=== PATIENT | male | born 1960 | race Caucasian/White ===

== ENCOUNTER 2019-10-02 08:58 | Emergency (ER) | payer OTHER ==
[2019-10-02 09:03] VITALS: TEMP 98.5
[2019-10-02] MEDS ORDERED: ASPIRIN 81 MG PO STA (09:20)
[2019-10-02] MEDS ORDERED: KETOROLAC 30 MG/ML 1 ML VIAL IVP STA (09:20)
[2019-10-02] MEDS ORDERED: SODIUM CHLORIDE 0.9% 1,000 ML IV STA (09:20)
[2019-10-02 09:33] LABS: Basophils % (A) 1 %; Eosinophils # (A) 0.1 k/uL (0-0.7); Eosinophils % (A) 2 %; HCT 47.4 % (39.0-53.0); HGB 15.6 gm/dL (13.0-17.5); Lymphocytes # (A) 1.6 k/uL (1.0-4.8); Lymphocytes % (A) 22 %; Monocytes # (A) 0.5 k/uL (0-1.0); Monocytes % (A) 7 %; Neutrophils % (A) 67 %; Platelet Count 306 k/uL (150-450); RBC 5.21 m/uL (4.30-5.90); RDW 13.3 % (11.5-15.5); WBC 7.5 k/uL (3.8-10.6)
--- NOTE | 2019-10-02 09:33 | ED ---
Chest Pain HPI - General Chief Complaint: Chest Pain Stated Complaint: Vomiting Time Seen by Provider: 10/02/19 09:05 Source: patient, RN notes reviewed Mode of arrival: wheelchair Limitations: no limitations - History of Present Illness Initial Comments: This is a 59-year-old male who was a former smoker who quit 6 years ago who states he had the onset this morning of chest pain sharp midsternal 5/10 severity with shortness of breath some nausea. He states 0) now he states it does get worse with movement deep breathing and positional changes. He denies any recent cough fevers chills nausea vomiting sweats. No known history of heart disease or lung disease. 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 Positions recently. No other trauma no other modifying factors at this time MD Complaint: chest pain - Related Data Home Medications Medication Instructions Recorded Confirmed Aspirin EC [Ecotrin Low Dose] 81 mg PO DAILY 10/02/19 10/02/19 Multivitamins, Thera [Multivitamin 1 tab PO DAILY 10/02/19 10/02/19 (formulary)] Previous Rx's Medication Instructions Recorded Ibuprofen 800 mg PO Q6HR PRN #20 tablet 10/02/19 Allergies Allergy/AdvReac Type Severity Reaction Status Date / Time bee pollen Allergy Unknown Verified 10/02/19 11:05 bee venom protein (honey bee) Allergy Anaphylaxis Verified 10/02/19 11:05 Review of Systems ROS Statement: Those systems with pertinent positive or pertinent negative responses have been documented in the HPI. ROS Other: All systems not noted in ROS Statement are negative. EKG Findings - EKG Results: EKG: interpreted by ANDREA, sinus rhythm (EKG shows sinus rhythm of 54 SC interval 146 QRS duration 102 QT since QTC 446/422 st-t wave changes) Past Medical History Past Medical History: No Reported History History of Any Multi-Drug Resistant Organisms: None Reported Past Surgical History: No Surgical Hx Reported Past Psychological History: No Psychological Hx Reported Smoking Status: Former smoker Past Alcohol Use History: None Reported Past Drug Use History: None Reported General Exam - General Exam Comments Initial Comments: This is a well-developed well-nourished awake alert oriented 3 male Limitations: no limitations General appearance: alert, in no apparent distress Head exam: Present: atraumatic, normocephalic, normal inspection Eye exam: Present: normal appearance, PERRL, EOMI. Absent: scleral icterus, conjunctival injection, periorbital swelling ENT exam: Present: normal exam, mucous membranes moist Neck exam: Present: normal inspection, full ROM, other. Absent: tenderness, meningismus, lymphadenopathy Respiratory exam: Present: normal lung sounds bilaterally, chest wall tenderness (Reproducible tenderness palpation on the left costal sternal costochondral margin with no step-off or crepitation.). Absent: respiratory distress, whe ezes, rales, rhonchi, stridor Cardiovascular Exam: Present: regular rate, normal rhythm, normal heart sounds. Absent: systolic murmur, diastolic murmur, rubs, gallop, clicks GI/Abdominal exam: Present: soft, normal bowel sounds. Absent: distended, tenderness, guarding, rebound, rigid, bruit, pulsatile mass Extremities exam: Present: normal inspection, full ROM, normal capillary refill. Absent: tenderness, pedal edema, joint swelling, calf tenderness Back exam: Present: normal inspection Neurological exam: Present: alert, oriented X3, CN II-XII intact Psychiatric exam: Present: normal affect, normal mood Skin exam: Present: warm, dry, intact, normal color. 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 CT was performed due to the elevated d-dimer negative for evidence of PE. Chronic changes Chest Pain MDM - MDM I did review the imaging and report no acute findings evidence of increased vascular markings over the patient's BNP is reasonable no clinical evidence CHF. Is a former smoker. The current presentation is consistent with chest wall pain and costochondritis he is tender over the costal sternal costochondral margins. We did a long discussion with him and his was present she is a nurse. Patient be discharged on NSAIDs. I did recommend that he follow-up with his doctor he will follow-up with his 's doctor and I did recommend an outpatient stress test. Disposition Clinical Impression: Costochondritis, Chest wall syndrome Disposition: HOME SELF-CARE Condition: Good Instructions (If sedation given, give patient instructions): Costochondritis (ED) Additional Instructions: [facility]ication prescriptions [facility] Prescriptions: Ibuprofen 800 mg PO Q6HR PRN #20 tablet PRN Reason: Pain Is patient prescribed a controlled substance at d/c from ED?: No Referrals: None,Stated [Primary Care Provider] - 1-2 days
--- NOTE | 2019-10-02 09:35 | XR ---
EXAMINATION TYPE: XR chest 2V DATE OF EXAM: 10/02/2019 COMPARISON: NONE HISTORY: Chest pain and nausea and shortness of breath. TECHNIQUE: Frontal and lateral views of the chest are obtained. FINDINGS: There is background chronic emphysematous change with small amount of fluid along the major fissure on lateral view. Perhaps mild interstitial edema with some Gabriella B lines in the left lung p eriphery. No suspicious focal airspace opacity or pneumothorax bilaterally. The cardiac silhouette s ize is within normal limits. The osseous structures are intact. IMPRESSION: Chronic emphysematous change with mild interstitial edema suspected. No suspicious focal infiltrate.
[2019-10-02 09:46] LABS: ALT 24 U/L (4-49); AST 30 U/L (17-59); African American GFR (CKD) >90 (>60 ml/min/1.73 sqM); Albumin 4.4 g/dL (3.5-5.0); Alkaline Phosphatase 95 U/L (38-126); Anion Gap 8 mmol/L; Blood Urea Nitrogen 13 mg/dL (9-20); Calcium 8.8 mg/dL (8.4-10.2); Carbon Dioxide 24 mmol/L (22-30); Chloride 105 mmol/L (98-107); Creatine Kinase 196 U/L (55-170); Glucose 91 mg/dL (74-99); Magnesium 2.2 mg/dL (1.6-2.3); Non-African American GFR(CKD) 88 (>60 ml/min/1.73 sqM); Potassium 4.8 mmol/L (3.5-5.1); Sodium 137 mmol/L (137-145); Total Bilirubin 0.8 mg/dL (0.2-1.3); Total Protein 7.8 g/dL (6.3-8.2)
[2019-10-02 09:49] LABS: Partial Thromboplastin Time 24.1 sec (22.0-30.0); Prothrombin Time 10.3 sec (9.0-12.0)
[2019-10-02 10:02] LABS: D-Dimer 0.85 mg/L FEU (<0.60)
--- NOTE | 2019-10-02 11:04 | CT ---
EXAMINATION TYPE: CT angio chest DATE OF EXAM: 10/02/2019 COMPARISON: Same day chest x-ray. HISTORY: shortness of breath, fatigue, elevated d-dimer CT DLP: 555.9 mGycm. Automated Exposure Control for Dose Reduction was Utilized. CONTRAST: CTA scan of the thorax is performed with IV Contrast, patient injected with 100 mL of Isovue 370, pul monary embolism protocol. MIP Images are created on CT scanner and reviewed. FINDINGS: LUNGS: Background mild underlying emphysematous change with mild alveolar and interstitial groundglas s opacity. Dependent atelectasis bilateral lobes. Corresponding to chest x-ray abnormality along fiss ure there is focal consolidation and/or atelectasis in the posterior inferior aspect of the suspected lingula. Left minor fissure not well visualized. No pleural effusion or pneumothorax bilaterally. No suspicious pulmonary masses. MEDIASTINUM: There is satisfactory enhancement of the pulmonary artery and its branches, there is no CT evidence for pulmonary embolism. There are no greater than 1 cm hilar or mediastinal lymph nodes. No pericardial effusion is seen. Heart size is mildly enlarged. There is left-sided arch with aber rant right subclavian artery running posterior to the esophagus, normal variant. OTHER: Mild to moderate mixed plaque in the visualized portion of the abdominal aorta extending into branch vessels. Sagittal image 96 shows mass effect from diaphragm on the celiac artery origin causin g narrowing greater than 50%. Clinical correlation advised. IMPRESSION: 1. No CT evidence for acute pulmonary embolism. 2. As suspected on x-ray correlate for CHF exacerbation or fluid overload status as there is mild car diomegaly with mild alveolar and interstitial edema felt present. 3. Incorrectly suspected on x-ray is fluid in left lung fissure there is actually more focal consolid ation/atelectasis in the posterior aspect lingula abutting the fissure accounting for x-ray abnormali ty. Correlate clinically. 4. 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 Strict clinical correlation advi sed.
[2019-10-02 12:34] VITALS: BP 150/84; PULSE 56; RESP 18
== END 2019-10-02 12:33 | disposition home or self-care (01) ==
LOC: EC 08:58
DX: M94.0 Chondrocostal junction syndrome [Tietze] (principal); R11.2 Nausea with vomiting, unspecified; R06.02 Shortness of breath; Z87.891 Personal history of nicotine dependence; Z79.82 Long term (current) use of aspirin; Z91.048 Other nonmedicinal substance allergy status
CPT/HCPCS: 99284; 96374; 96361 ×3; 36415; 93005; 85379; 83880; 80053; 82550; 83690; 83735; 84484; 85025; 85610; 85730; 71046; 71275; J1885; Q9967

== ENCOUNTER 2020-10-30 19:14 | Emergency (ER) | payer OTHER ==
[2020-10-30] MEDS ORDERED: KETOROLAC 15 MG/ML 1 ML VIAL IM STA (20:57)
[2020-10-30] MEDS ORDERED: ACETAMINOPHEN TAB 325 MG TAB PO STA (20:57)
--- NOTE | 2020-10-30 21:17 | XR ---
EXAMINATION TYPE: XR chest 2V DATE OF EXAM: 10/30/2020 COMPARISON: 10/02/2019 HISTORY: Fever TECHNIQUE: FINDINGS: There is some patchy infiltrate in both lungs. There is interstitial and airspace component of the infiltrates. Heart size is normal. There is no heart failure. There are no hilar masses. Ther e is no pleural effusion. Bony thorax is intact. IMPRESSION: There is patchy bilateral pneumonia which is new compared to old exam.
--- NOTE | 2020-10-30 21:27 | ED ---
Headache HPI - General Chief Complaint: Headache Stated Complaint: Fever, Headache Time Seen by Provider: 10/30/20 20:41 Mode of arrival: ambulatory Limitations: no limitations - History of Present Illness Initial Comments: 60-year-old male presenting to the emergency department today for chief complaint of body aches chills fevers and headaches. Patient states that since Monday of last week he has had body aches chills fevers and on and off headaches he denies neck stiffness abdominal pain, he states he feels like he cannot expand his lungs fully--no chest pressure jaw pain and arm pain or significant shortness of breath. Patient denies any sharp pains with deep inspiration leg swelling hemoptysis. Patient denies history of DVT or pulmonary embolism. Patient denies any vomiting, or nausea. He admits to the occasional diarrhea. Patient states he's been able to keep up with his fluids. Patient denies additional complaints. upon arrival he appears well nontoxic in no acute distress. febrile. Not hypotensive nor tachycardic. 95% without evidence of distress. - Related Data Home Medications Medication Instructions Recorded Confirmed Aspirin EC [Ecotrin Low Dose] 81 mg PO DAILY 10/02/19 10/02/19 Multivitamins, Thera [Multivitamin 1 tab PO DAILY 10/02/19 10/02/19 (formulary)] Previous Rx's Medication Instructions Recorded Ibuprofen 800 mg PO Q6HR PRN #20 tablet 10/02/19 Allergies Allergy/AdvReac Type Severity Reaction Status Date / Time bee pollen Allergy Unknown Verified 10/30/20 20:01 bee venom protein (honey bee) Allergy Anaphylaxis Verified 10/30/20 20:01 Review of Systems ROS Statement: Those systems with pertinent positive or pertinent negative responses have been documented in the HPI. ROS Other: All systems not noted in ROS Statement are negative. Past Medical History Past Medical History: No Reported History History of Any Multi-Drug Resistant Organisms: None Reported Past Surgical History: No Surgical Hx Reported Past Psychological History: No Psychological Hx Reported Smoking Status: Never smoker Past Alcohol Use History: None Reported Past Drug Use History: None Reported General Exam - General Exam Comments Initial Comments: General: The patient is awake and alert, in no distress Eye: +3 mm pupils are equal, round and reactive to light, extra-ocular movem ents are intact. No nystagmus. There is normal conjunctiva bilaterally. No signs of icterus. Ears, nose, mouth and throat: There are moist mucous membranes and no oral l esions. Neck: The neck is supple, there is no tenderness or JVD. Cardiovascular: There is a regular rate and rhythm. No murmur, rub or gallop is appreciated. Respiratory: Lungs are clear to auscultation, respirations are non-labored, breath sounds are equal. No wheezes, stridor, rales, or rhonchi. Gastrointestinal: Soft, non-distended, non-tender abdomen without masses or organomegaly noted. There is no rebound or guarding present. Musculoskeletal: Normal ROM, no tenderness. Strength 5/5. Sensation intact. radial and DP pulses equal bilaterally 2+. Neurological: A&O x 3. CN II-XII intact grossly, There are no obvious motor or sensory deficits. Coordination appears grossly intact. Speech is normal. Skin: Skin is warm and dry and no rashes or lesions are noted. Psychiatric: Cooperative, appropriate mood & affect, normal judgment. Limitations: no limitations Course Vital Signs 10/30/20 10/30/20 19:58 20:47 Temperature 98.8 F 100.3 F H Pulse Rate 79 Respiratory 19 Rate Blood Pressure 122/87 O2 Sat by Pulse 95 Oximetry Medical Decision Making - Medical Decision Making 60yo male presenting for cc of fevers, body aches headache. No nuchal rigidity. Patient denies shortness of breath. Chest x-ray revealed a bilateral atypical appearing pneumonia. This is consistent patient's positive Covid test. Patient is not hypoxic nor in any respiratory distress. At this time feel he is stable for discharge with outpatient pcp f/u, and home oxygen monitoring. - Lab Data Lab Results 10/30/20 Range/Units 20:53 Coronavirus (PCR) Detected A (Not Detectd) Disposition Clinical Impression: COVID-19, Pneumonia due to COVID-19 virus Disposition: HOME SELF-CARE Condition: Good Instructions (If sedation given, give patient instructions): Coronavirus Disease 2019 (COVID-19) Additional Instructions: Please use medication as discussed. Please follow-up with family doctor in the next 2 days. Please return to emergency room if the symptoms increase or worsen or for any other concerns. Is patient prescribed a controlled substance at d/c from ED?: No Referrals: None,Stated [Primary Care Provider] - 1-2 days Time of Disposition: 21:27
[2020-10-30 21:50] VITALS: BP 137/79; PULSE 73; RESP 16; TEMP 99
== END 2020-10-30 21:50 | disposition home or self-care (01) ==
LOC: EC 19:14
DX: U07.1 COVID-19 (principal); J12.82 Pneumonia due to coronavirus disease 2019; Z79.82 Long term (current) use of aspirin
CPT/HCPCS: 71046; 87635; 96372; 99284

== ENCOUNTER 2021-11-07 14:05 | Inpatient (IN) | payer OTHER ==
[2021-11-07] MEDS ORDERED: SODIUM CHLORIDE 0.9% 1,000 ML IV STA (16:25)
[2021-11-07] MEDS ORDERED: KETOROLAC 15 MG/ML 1 ML VIAL IVP STA (16:37)
--- NOTE | 2021-11-07 16:39 | ED ---
Abdominal Pain HPI - General Chief Complaint: Abdominal Pain Stated Complaint: R sided abd pain Time Seen by Provider: 11/07/21 16:24 Source: patient, RN notes reviewed Mode of arrival: wheelchair Limitations: no limitations - History of Present Illness Initial Comments: This is a pleasant 61-year-old male who presents to the emergency department complaining of pain in the area of his right upper quadrant and right lower anterior rib area. Patient states it started Monday night when he was trying to sleep. 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 The patient states pain sharp in nature exacerbated by movement and deep breathing. Os was aspirated by palpation. He denies any chest pain. No headache, no fever or chills, no changes in vision or hearing, no sore throat or difficulty with speech, no neck pain, no chest pain or shortness of breath, RIGHT upper quadrant pain, no nausea or vomiting, no changes in urination or bowel movements, no numbness or tingling, no extremity pain, no skin rashes or lesions. - Related Data Home Medications Medication Instructions Recorded Confirmed No Known Home Medications 11/07/21 11/07/21 Allergies Allergy/AdvReac Type Severity Reaction Status Date / Time bee pollen Allergy Unknown Verified 11/07/21 18:35 bee venom protein (honey bee) Allergy Anaphylaxis Verified 11/07/21 18:35 Review of Systems ROS Statement: Those systems with pertinent positive or pertinent negative responses have been documented in the HPI. ROS Other: All systems not noted in ROS Statement are negative. Past Medical History Past Medical History: No Reported History History of Any Multi-Drug Resistant Organisms: None Reported Past Surgical History: No Surgical Hx Reported Past Psychological History: No Psychological Hx Reported Smoking Status: Former smoker Past Alcohol Use History: None Reported Past Drug Use History: Cocaine General Exam - General Exam Comments Initial Comments: This is a generally healthy-appearing 61-year-old male in moderate distress secondary to right upper quadrant abdominal wall and right lower rib pain. Does not appear to be ill or toxic. Limitations: no limitations General appearance: alert, in no apparent distress, in distress Head exam: Present: atraumatic, normocephalic, normal inspection Eye exam: Present: normal appearance, PERRL, EOMI. Absent: scleral icterus, conjunctival injection, periorbital swelling ENT exam: Present: normal exam, normal oropharynx, mucous membranes moist, TM's normal bilaterally, normal external ear exam Neck exam: Present: normal inspection. Absent: tenderness, meningismus, lymphadenopathy Respiratory exam: Present: normal lung sounds bilaterally, chest wall tenderness (Right anterior lower ribs). Absent: respiratory distress, wheezes, rales, rhonchi, stridor, accessory muscle use, decreased breath sounds, prolonged expiratory Cardiovascular Exam: Present: regular rate, normal rhythm, normal heart sounds. Absent: systolic murmur, diastolic murmur, rubs, gallop, clicks GI/Abdominal exam: Present: soft, tenderness (Right upper quadrant), guarding (Voluntary), normal bowel sounds. Absent: distended, rebound, rigid Extremities exam: Present: normal inspection, full ROM, normal capillary refill. Absent: tenderness, pedal edema, joint swelling, calf tenderness Back exam: Present: normal inspection Neurological exam: Present: alert, oriented X3, CN II-XII intact Psychiatric exam: Present: normal affect, normal mood Skin exam: Present: warm, dry, intact, normal color. Absent: rash Course Vital Signs 11/07/21 11/07/21 11/07/21 14:40 17:22 18:34 Temperature 98 F 101.3 F H Pulse Rate 75 73 65 Respiratory 16 18 18 Rate Blood Pressure 144/98 172/93 160/78 O2 Sat by Pulse 96 95 92 L Oximetry - Reevaluation(s) Reevaluation #1: 11/07/21 17:15 Medical record is reviewed Symptoms are --essentially the same, patient's d-dimer elevated. CT of the chest ordered. Patient is informed of results and questions answered Patient in no distress Reevaluation #2: 11/07/21 17:47 Medical record is reviewed Patient would not tolerate the computed tomography scan. Pain medication and muscle relaxer ordered. Patient was found to be febrile and repeat vitals. Blood cultures ordered. Antibiotics ordered for pneumonia based on the pleural reaction in the right lower lobe on plain film x-ray. May need to add on Flagyl. Temp 101.5. Reevaluation #3: 11/07/21 17:59 Call from radiology, patient positive for bilateral pulmonary emboli. Heparin protocol initiated. Procedures - Sepsis Sepsis Focused Exam #1 Time Sepsis Criteria Met: 05:30 Sepsis Focused Exam Date: 11/07/21 Sepsis Focused Exam Time: 18:33 Sepsis Focused Exam Complete: Yes Capillary Refill: < 2 Seconds: Fingers, Toes Peripheral Pulses: Strong: Radial (R), Radial (L), Posterior Tibialis (R), Posterior Tibialis (L), Dorsalis Pedis (R), Dorsalis Pedis (L) Skin Color: Normal for Patient Respiratory Exam: normal lung sounds, other (Good color, no mottling, normal capillary refill) Cardiovascular Exam: regular rate Sepsis Focused Exam #2 Sepsis Focused Exam Time: 21:21 Sepsis Focused Exam Complete: Yes Vital Signs & RN Notes Reviewed: Yes Capillary Refill: < 2 Seconds: Fingers, Toes Peripheral Pulses: Strong: Radial (R), Radial (L), Posterior Tibialis (R), Posterior Tibialis (L), Dorsalis Pedis (R), Dorsalis Pedis (L) Skin Color: Normal for Patient Respiratory Exam: normal lung sounds Cardiovascular Exam: regular rate Medical Decision Making - Medical Decision Making Patient presents with what appears to be abdominal wall/right lower rib pain which is reproducible. Appears to be consistent with musculoskeletal etiology. Whether, intra-abdominal, intrathoracic etiology not ruled out. We'll order diagnostic testing a plan for evaluation. The case was discussed in detail with ED attending physician. Presentation, findings, treatment plan discussed in detail. Patient does meet sepsis criteria based on initial laboratory findings, white blood cell count greater than 11,000, fever greater than 100.4. Suspected right lower lobe pneumonia--noted at 1730 - Lab Data Result diagrams: 11/07/21 16:43 11/07/21 16:43 Lab Results 11/07/21 11/07/21 11/07/21 Range/Units 16:43 16:43 16:43 WBC 11.2 H (3.8-10.6) k/uL RBC 5.16 (4.30-5.90) m/uL Hgb 16.2 (13.0-17.5) gm/dL Hct 47.8 (39.0-53.0) % MCV 92.7 (80.0-100.0) fL MCH 31.5 (25.0-35.0) pg MCHC 33.9 (31.0-37.0) g/dL RDW 13.8 (11.5-15.5) % Plt Count 306 (150-450) k/uL MPV 7.3 Neutrophils % 75 % Lymphocytes % 16 % Monocytes % 5 % Eosinophils % 1 % Basophils % 1 % Neutrophils # 8.5 H (1.3-7.7) k/uL Lymphocytes # 1.8 (1.0-4.8) k/uL Monocytes # 0.6 (0-1.0) k/uL Eosinophils # 0.2 (0-0.7) k/uL Basophils # 0.1 (0-0.2) k/uL D-Dimer (<0.60) mg/L FEU Sodium (137-145) mmol/L Potassium (3.5-5.1) mmol/L Chloride (98-107) mmol/L Carbon Dioxide (22-30) mmol/L Anion Gap mmol/L BUN (9-20) mg/dL Creatinine (0.66-1.25) mg/dL Est GFR (CKD-EPI)AfAm (>60 ml/min/1.73 sqM) Est GFR (CKD-EPI)NonAf (>60 ml/min/1.73 sqM) Glucose (74-99) mg/dL Calcium (8.4-10.2) mg/dL Total Bilirubin (0.2-1.3) mg/dL AST (17-59) U/L ALT (4-49) U/L Alkaline Phosphatase (38-126) U/L Troponin I (0.000-0.034) ng/mL Total Protein (6.3-8.2) g/dL Albumin (3.5-5.0) g/dL Lipase 25 (23-300) U/L Urine Color Yellow Urine Appearance Clear (Clear) Urine pH 5.5 (5.0-8.0) Ur Specific [place] 1.029 (1.001-1.035) Urine Protein Trace H (Negative) Urine Glucose (UA) Negative (Negative) Urine Ketones Negative (Negative) Urine Blood Negative (Negative) Urine Nitrite Negative (Negative) Urine Bilirubin Negative (Negative) Urine Urobilinogen <2.0 (<2.0) mg/dL Ur Leukocyte Esterase Negative (Negative) 11/07/21 11/07/21 11/07/21 Range/Units 16:43 16:43 16:43 WBC (3.8-10.6) k/uL RBC (4.30-5.90) m/uL Hgb (13.0-17.5) gm/dL Hct (39.0-53.0) % MCV (80.0-100.0) fL MCH (25.0-35.0) pg MCHC (31.0-37.0) g/dL RDW (11.5-15.5) % Plt Count (150-450) k/uL MPV Neutrophils % % Lymphocytes % % Monocytes % % Eosinophils % % Basophils % % Neutrophils # (1.3-7.7) k/uL Lymphocytes # (1.0-4.8) k/uL Monocytes # (0-1.0) k/uL Eosinophils # (0-0.7) k/uL Basophils # (0-0.2) k/uL D-Dimer 3.32 H (<0.60) mg/L FEU Sodium 137 (137-145) mmol/L Potassium 4.4 (3.5-5.1) mmol/L Chloride 106 (98-107) mmol/L Carbon Dioxide 20 L (22-30) mmol/L Anion Gap 11 mmol/L BUN 14 (9-20) mg/dL Creatinine 0.74 (0.66-1.25) mg/dL Est GFR (CKD-EPI)AfAm >90 (>60 ml/min/1.73 sqM) Est GFR (CKD-EPI)NonAf >90 (>60 ml/min/1.73 sqM) Glucose 103 H (74-99) mg/dL Calcium 8.4 (8.4-10.2) mg/dL Total Bilirubin 1.0 (0.2-1.3) mg/dL AST 23 (17-59) U/L ALT 18 (4-49) U/L Alkaline Phosphatase 92 (38-126) U/L Troponin I <0.012 (0.000-0.034) ng/mL Total Protein 7.4 (6.3-8.2) g/dL Albumin 4.0 (3.5-5.0) g/dL Lipase (23-300) U/L Urine Color Urine Appearance (Clear) Urine pH (5.0-8.0) Ur Specific [place] (1.001-1.035) Urine Protein (Negative) Urine Glucose (UA) (Negative) Urine Ketones (Negative) Urine Blood (Negative) Urine Nitrite (Negative) Urine Bilirubin (Negative) Urine Urobilinogen (<2.0) mg/dL Ur Leukocyte Esterase (Negative) - EKG Data EKG Comments: EKG done at 1709. By the ED attending physician reveals nonspecific ST changes. Normal axis. Normal rate at 74, normal intervals. No acute ST or T-wave changes otherwise. Normal QRS morphology, poor R-wave progression. Critical Care Time Critical Care Time: Yes (Sepsis, complicated case, patient's response to treatment, evaluation and d) Total Critical Care Time: 35 Disposition Clinical Impression: Pulmonary embolism, Community acquired pneumonia, Sepsis, Pleural effusion, right, Chest wall pain Disposition: ADMITTED IP TO THIS [facility] Time of Disposition: 17:58 Decision to Admit Reason: Admit from EC Decision Time: 17:58
[2021-11-07 16:56] LABS: Appearance,Urine Clear (Clear); Basophils # (A) 0.1 k/uL (0-0.2); Basophils % (A) 1 %; Bilirubin,Urine Negative (Negative); Blood,Urine Negative (Negative); Color,Urine Yellow; Eosinophils # (A) 0.2 k/uL (0-0.7); Eosinophils % (A) 1 %; Glucose,Urine (UA) Negative (Negative); HCT 47.8 % (39.0-53.0); HGB 16.2 gm/dL (13.0-17.5); Ketones,Urine Negative (Negative); Leukocyte Esterase,Urine Negative (Negative); Lymphocytes # (A) 1.8 k/uL (1.0-4.8); Lymphocytes % (A) 16 %; MCH 31.5 pg (25.0-35.0); MCHC 33.9 g/dL (31.0-37.0); MCV 92.7 fL (80.0-100.0); Mean Platelet Volume 7.3; Monocytes # (A) 0.6 k/uL (0-1.0); Monocytes % (A) 5 %; Neutrophils # (A) 8.5 k/uL (1.3-7.7); Neutrophils % (A) 75 %; Nitrite,Urine Negative (Negative); PH, Urine 5.5 (5.0-8.0); Platelet Count 306 k/uL (150-450); Protein,Urine Trace (Negative); RBC 5.16 m/uL (4.30-5.90); RDW 13.8 % (11.5-15.5); Specific Gravity,Urine 1.029 (1.001-1.035); Urobilinogen,Urine <2.0 mg/dL (<2.0); WBC 11.2 k/uL (3.8-10.6)
[2021-11-07 17:04] LABS: ALT 18 U/L (4-49); African American GFR (CKD) >90 (>60 ml/min/1.73 sqM); Anion Gap 11 mmol/L; Blood Urea Nitrogen 14 mg/dL (9-20); Calcium 8.4 mg/dL (8.4-10.2); Carbon Dioxide 20 mmol/L (22-30); Chloride 106 mmol/L (98-107); Glucose 103 mg/dL (74-99); Non-African American GFR(CKD) >90 (>60 ml/min/1.73 sqM); Sodium 137 mmol/L (137-145); Total Protein 7.4 g/dL (6.3-8.2)
[2021-11-07] MEDS ORDERED: MORPHINE SULFATE 4 MG/ML SYRINGE IV STA (17:04)
[2021-11-07] MEDS ORDERED: ONDANSETRON 4 MG/2 ML VIAL IVP STA (17:04)
[2021-11-07 17:06] LABS: AST 23 U/L (17-59); Alkaline Phosphatase 92 U/L (38-126); Potassium 4.4 mmol/L (3.5-5.1)
--- NOTE | 2021-11-07 17:14 | XR ---
EXAMINATION TYPE: XR KUB DATE OF EXAM: 11/07/2021 COMPARISON: NONE HISTORY: Right upper quadrant pain TECHNIQUE: 2 views upright FINDINGS: There is no sign of intestinal obstruction or pneumoperitoneum. Fecal pattern is normal. Th ere is some mild atelectasis at the right lung base. There are no pathologic calcifications over the kidneys. IMPRESSION: Nonacute abdomen. Mild atelectasis right lung base.
--- NOTE | 2021-11-07 17:15 | XR ---
EXAMINATION TYPE: XR chest 1V DATE OF EXAM: 11/07/2021 COMPARISON: 10/30/2020 HISTORY: Right upper quadrant pain TECHNIQUE: Single view FINDINGS: There is some blunting right costophrenic angle and linear density right lung base. No hear t failure. Heart size is normal. There are no hilar masses. IMPRESSION: There is some pleural reaction and atelectasis right lung base which is new compared to o ld exam. This significant clearing of the patchy pulmonary infiltrates compared to old exam.
[2021-11-07] MEDS ORDERED: ORPHENADRINE 30 MG/ML 2 ML VIAL IVP STA (17:32)
[2021-11-07] MEDS ORDERED: MORPHINE SULFATE 4 MG/ML SYRINGE IVP STA (17:32)
[2021-11-07] MEDS ORDERED: ACETAMINOPHEN IV (For NPO) 1,000 MG in SALINE 100 100ML.BAG IVPB STA (17:36)
[2021-11-07] MEDS ORDERED: cefTRIAXone IN SWFI 1,000 MG/10 ML SYRINGE IVP STA (17:44)
[2021-11-07] MEDS ORDERED: PNEUMONIA PROTOCOL UTILIZED 1 EACH MISC PO PRN (17:45)
[2021-11-07] MEDS ORDERED: AZITHROMYCIN 500 MG in SODIUM CHLORIDE 0.9% 250 ML IVPB STA (17:45)
--- NOTE | 2021-11-07 17:57 | CT ---
EXAMINATION TYPE: CT angio chest DATE OF EXAM: 11/07/2021 COMPARISON: 10/02/2019 HISTORY: let side pain, elevated d-dimer CT DLP: 372 mGycm Automated exposure control for dose reduction was used. CONTRAST: Performed with IV Contrast, patient injected with 100 mL of Isovue 370. Images obtained from the thoracic inlet to the diaphragm with IV contrast. There are Three-D postproc essed images. There is mild right pleural effusion. There is linear infiltrate and atelectasis at the lung bases bi laterally. There is no pericardial effusion. There are enlarged right bronchial lymph nodes up to 1.5 cm. There is no mediastinal adenopathy. 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 There is no mediastinal adenopathy. There is a single filling defect in the left upper lobe pulmonary artery in the posterior segment bra nch. There are multiple small filling defects also in the right lower lobe pulmonary artery smaller b ranches. There are small filling defects in the right upper lobe pulmonary artery smaller branches. The thoracic spine is intact. No compression fracture. Sternum is intact. IMPRESSION: Multiple bilateral small emboli. These appear new compared to old exam. No evidence of right heart strain. Pulmonary infiltrates and atelectasis bilaterally with small right pleural effusion. Exam was discussed with attending staff at 11:57 AM.
[2021-11-07] MEDS ORDERED: HEPARIN SODIUM 1,000 UN/ML (10ML VL) IV ONE (17:58)
[2021-11-07] MEDS ORDERED: HEPARIN SODIUM 1,000 UN/ML (10ML VL) IV PRN (17:58)
[2021-11-07] MEDS ORDERED: HEPARIN SOD,PORK IN 0.45% NACL 25,000 UNIT in 0.45% NACL 1 250ML.BAG IV SCH (18:00)
[2021-11-07] MEDS ORDERED: NALOXONE 0.4 MG/ML 1 ML VIAL IV PRN (18:25)
[2021-11-07] MEDS ORDERED: ONDANSETRON 4 MG/2 ML VIAL IVP PRN (18:25)
[2021-11-07 19:32] LABS: INR 1.1 (<1.2); Prothrombin Time 12.1 sec (9.0-12.0)
[2021-11-07 19:52] LABS: Partial Thromboplastin Time 161.9 sec (22.0-30.0)
--- NOTE | 2021-11-07 19:55 | US ---
EXAMINATION TYPE: US abdomen limited DATE OF EXAM: 11/07/2021 COMPARISON: NONE CLINICAL HISTORY: Right upper quadrant abdominal pain. EXAM MEASUREMENTS: Liver Length: 17.0 cm Gallbladder Wall: 0.3 cm CBD: 0.2 cm Right Kidney: 9.5 x 5.2 x 5.0 cm Patient has such SOB that he had to sit upright for his exam, he was unable to roll decub or hold his breath. Extremely limited study. Pancreas: Obscured by bowel gas Liver: upper limits of normal in size, very limited views Gallbladder: wnl Evidence for sonographic Romo's sign: no CBD: wnl, very limited visualization Right Kidney: wnl, as seen, very limited views IMPRESSION: Negative exam. No gallstones or dilated ducts.
[2021-11-07] MEDS: SODIUM CHLORIDE 0.9% 1,000 ML IV SCH (22:17)
[2021-11-07] MEDS: MORPHINE SULFATE 4 MG/ML SYRINGE IV PRN (22:27)
--- NOTE | 2021-11-07 22:52 | P.HPIM ---
History of Present Illness H&P Date: 11/07/21 Patient is a 61-year-old male with no known PMH who presents to the emergency room with complaints of right-sided chest wall pain. Patient reports that his pain started this past Monday evening, sharp and achy in nature, pleuritic, in the right lateral chest wall, worsened with certain movements, 10 out of 10 on maximal intensity, with associated shortness of breath. He reports recently traveling to [facility] via car for 3-1/[address] and returning home on . He reports that his pain has improved since arrival to the emergency room and after receiving pain medications. Denied associated nausea, vomiting, diaphoresis, or palpitations. Denied cough, abdominal discomfort, fever, chills, cough, nausea, vomiting, diarrhea. A chest CT in the emergency room revealed multiple bilateral small emboli with no evidence of right heart strain. EKG revealed junctional rhythm at 74 bpm. Abdominal ultrasound was unremarkable. Laboratory evaluation revealed WBC 11.2, COVID 19 negative, lactic acid 0.6, with T-max 101.3F. SpO2 was 92% on room air. The patient reports a significant family history of blood clots with his mother and both his sisters having developed multiple blood clots throughout her life. The patient personally however denied a history of blood clots or ever being on a blood thinner. Also denied expressing lower extremity swelling or pain. Review of systems: Pertinent positives and negatives as discussed in HPI, a complete review of systems was performed and all other systems are negative. Physical examination: General: non toxic, no distress, appears at stated age, obese Derm: no unusual rashes/lesions no unusual ecchymoses, warm, dry Head: atraumatic, normocephalic, symmetric Eyes: EOMI, no lid lag, anicteric sclera, pupils equal round reactive to light ENT: Nose and ears atraumatic, no thrush, no pharyngeal erythema Neck: No thyromegaly, no cervical lymphadenopathy, trachea midline, supple Mouth: no lip lesion, mucus membranes moist Cardiovascular: S1S2 reg, no murmur, positive posterior tibial pulse bilateral, no edema, capillary refill less than 2 seconds Lungs: CTA bilateral, no rhonchi, no rales , no accessory muscle use Abdominal: soft, nontender to palpation, no guarding, no appreciable organomegaly, normal bowel sounds Ext: no gross muscle atrophy, muscle strength 5 out of 5 in all 4 extremities grossly, no contractures, Neuro: CN II-XI grossly intact, light touch intact all 4 extremities, finger to nose within normal limits, Psych: Alert, oriented, appropriate affect Assessment/plan Acute bilateral PE -Start patient on Eliquis PO 10 mg PO bid x 7d, then 5 mg PO bid -Patient will need outpatient hematology consult to determine duration of therapy, as he will likely need lifelong anticoagulation. -Cardiac monitoring -Supplemental oxygen -Obtain Echocardiogram SIRS, likely due to ongoing PE -No signs of active infection at this time DVT prophylaxis -Eliquis The patient is admitted with an anticipated greater than 2 midnight stay for evaluation of acute PE CODE STATUS: Full Code Discussed with: Patient Anticipated discharge date: Home Anticipated discharge place: Home Past Medical History Past Medical History: No Reported History History of Any Multi-Drug Resistant Organisms: None Reported Past Surgical History: No Surgical Hx Reported Past Psychological History: No Psychological Hx Reported Smoking Status: Former smoker Past Alcohol Use History: None Reported Past Drug Use History: Cocaine Medications and Allergies Home Medications Medication Instructions Recorded Confirmed Type No Known Home Medications 11/07/21 11/07/21 History Allergies Allergy/AdvReac Type Severity Reaction Status Date / Time bee pollen Allergy Unknown Verified 11/07/21 18:35 bee venom protein (honey bee) Allergy Anaphylaxis Verified 11/07/21 18:35 Physical Exam Vitals: Vital Signs Temp Pulse Resp BP Pulse Ox 11/07/21 18:34 65 18 160/78 92 L 11/07/21 17:22 101.3 F H 73 18 172/93 95 11/07/21 14:40 98 F 75 16 144/98 96 Intake and Output 11/07/21 11/07/21 11/07/21 06:59 14:59 22:59 Other: Weight 95.254 kg Results CBC & Chem 7: 11/07/21 16:43 11/07/21 16:43 Labs: Abnormal Lab Results - Last 24 Hours (Table) 11/07/21 11/07/21 11/07/21 Range/Units 16:43 16:43 16:43 WBC 11.2 H (3.8-10.6) k/uL Neutrophils # 8.5 H (1.3-7.7) k/uL PT (9.0-12.0) sec APTT (22.0-30.0) sec D-Dimer (<0.60) mg/L FEU Carbon Dioxide 20 L (22-30) mmol/L Glucose 103 H (74-99) mg/dL Plasma Lactic Acid Calvin (0.7-2.0) mmol/L Urine Protein Trace H (Negative) 11/07/21 11/07/21 11/07/21 Range/Units 16:43 18:50 21:43 WBC (3.8-10.6) k/uL Neutrophils # (1.3-7.7) k/uL PT 12.1 H (9.0-12.0) sec APTT 161.9 H* (22.0-30.0) sec D-Dimer 3.32 H (<0.60) mg/L FEU Carbon Dioxide (22-30) mmol/L Glucose (74-99) mg/dL Plasma Lactic Acid Calvin 0.6 L (0.7-2.0) mmol/L Urine Protein (Negative)
[2021-11-07] MEDS: ACETAMINOPHEN TAB 325 MG TAB PO PRN (23:44)
[2021-11-08] MEDS: APIXABAN 5 MG TAB PO SCH ×3 (00:39→20:26)
[2021-11-08] MEDS: SODIUM CHLORIDE 0.9% 1,000 ML IV SCH ×3 (02:34→20:23)
[2021-11-08 06:00] LABS: Basophils % (A) 0 %; Eosinophils # (A) 0.2 k/uL (0-0.7); Eosinophils % (A) 2 %; HCT 42.8 % (39.0-53.0); Lymphocytes # (A) 1.9 k/uL (1.0-4.8); Lymphocytes % (A) 25 %; MCH 30.8 pg (25.0-35.0); MCHC 32.7 g/dL (31.0-37.0); MCV 94.4 fL (80.0-100.0); Mean Platelet Volume 7.4; Monocytes # (A) 0.5 k/uL (0-1.0); Monocytes % (A) 6 %; Neutrophils # (A) 5.1 k/uL (1.3-7.7); Neutrophils % (A) 65 %; Platelet Count 278 k/uL (150-450); RBC 4.53 m/uL (4.30-5.90); RDW 13.8 % (11.5-15.5); WBC 7.8 k/uL (3.8-10.6)
[2021-11-08 06:10] LABS: ALT 14 U/L (4-49); AST 14 U/L (17-59); African American GFR (CKD) >90 (>60 ml/min/1.73 sqM); Albumin 2.8 g/dL (3.5-5.0); Alkaline Phosphatase 78 U/L (38-126); Anion Gap 4 mmol/L; Blood Urea Nitrogen 16 mg/dL (9-20); Calcium 7.6 mg/dL (8.4-10.2); Carbon Dioxide 26 mmol/L (22-30); Chloride 107 mmol/L (98-107); Glucose 97 mg/dL (74-99); Non-African American GFR(CKD) >90 (>60 ml/min/1.73 sqM); Potassium 3.8 mmol/L (3.5-5.1); Sodium 137 mmol/L (137-145); Total Bilirubin 0.5 mg/dL (0.2-1.3); Total Protein 5.6 g/dL (6.3-8.2)
[2021-11-08] MEDS: MORPHINE SULFATE 4 MG/ML SYRINGE IV PRN ×3 (06:18→16:41)
--- NOTE | 2021-11-08 10:48 | ECHOF ---
Referral Reason:acute PE MEASUREMENTS -------- HEIGHT: 180.3 cm WEIGHT: 95.3 kg BP: RVIDd: 2.8 cm (< 3.3) IVSd: 1.6 cm (0.6 - 1.1) LVIDd: 4.2 cm (3.9 - 5.3) LVPWd: 1.4 cm (0.6 - 1.1) IVSs: 2.0 cm LVIDs: 2.1 cm LVPWs: 2.1 cm LAESV Index (A-L): 16.02 ml/m Ao Diam: 3.6 cm (2.0 - 3.7) AV Cusp: 1.6 cm (1.5 - 2.6) LA Diam: 3.6 cm (2.7 - 3.8) MV EXCURSION: 17.701 mm (> 18.000) MV EF SLOPE: 108 mm/s (70 - 150) EPSS: 0.5 cm MV E Willy: 0.61 m/s MV DecT: 276 ms MV A Willy: 0.74 m/s MV E/A Ratio: 0.82 RAP: 5.00 mmHg RVSP: 15.61 mmHg TAPSE: 23.90 mm FINDINGS -------- The left ventricular size is normal. There is moderate concentric left ventricular hypertrophy. O verall left ventricular systolic function is normal with, an EF between 55 - 60 %. The right ventricle is normal in size. The right ventricular systolic function is normal. The left atrial size is normal. The right atrial size is normal. The aortic valve is trileaflet and appears structurally normal. The mitral valve is normal. There is trace mitral regurgitation. The tricuspid valve appears structurally normal. Trace tricuspid regurgitation present. Right suzanna tricular systolic pressure is normal at < 35 mmHg. There is no pulmonic regurgitation present. The aortic root size is normal. Normal inferior vena cava with normal inspiratory collapse consistent with estimated right atrial pre ssure of 5 mmHg. There is no pericardial effusion. CONCLUSIONS -------- 1. The left ventricular size is normal. 2. There is moderate concentric left ventricular hypertrophy. 3. Overall left ventricular systolic function is normal with, an EF between 55 - 60 %. 4. The right ventricle is normal in size. 5. The right ventricular systolic function is normal. 6. There is trace mitral regurgitation. 7. Trace tricuspid regurgitation present. 8. There is no pericardial effusion. MANAGER INTERNATIONAL: Raquel Matthews RDCS
--- NOTE | 2021-11-08 11:24 | P.PN ---
Subjective Progress Note Date: 11/08/21 Hospital course: Patient is a very pleasant 61-year-old male with no known reported past medical history. He presented to the emergency department with a chief complaint of right sided chest pain. Patient reported right lateral wall chest pain 1 week described as sharp and achy in nature and worsened with a deep breath. Patient reports his pain was associated by shortness of breath. Patient did have recent travel to the (approximately a 3-1/[address]). Patient was seen and fully evaluated in the emergency department. he was found to have an elevated d-dimer of 3.32 and a normal troponin of < 0.012. Pt underwent a CT PE which revealed multiple bilateral small emboli with no evidence of right heart strainpatient was admitted under our services and started on oral anticoagulation with Eliquis. EKG was completed revealing sinus rhythm of 74 bpm. Covid PCR was negative. Echocardiogram to be completed and pt will need to follow up outpatient with hematology for continued long-term monitoring/management of anticoagulation needs. Physical exam: Patient was seen and fully evaluated at the bedside this morning. He reports continued pain to right lateral chest wall worsening upon taking a deep breath. patient does report improvement of pain with morphine. Vital signs reviewed and stable. General: Nontoxic, no distress and appears stated age. Derm: Skin warm and dry, normal coloration for ethnicity. Head: Atraumatic, normocephalic and symmetric. Eyes: EOMs intact, no lid lag, and anicteric sclera Mouth: no lip lesions, mucus membranes moist Cardiovascular: regular rate and rhythm with normal S1S2, no murmur, positive posterior tibial pulses bilaterally, and cap refill < 2 seconds. Lungs: Respirations even, regular, and unlabored on room air. Lungs CTA bilaterally, no rhonchi, no rales, no wheezing, and no accessory muscle usage. Abdominal: soft, nontender to palpation, no guarding, no appreciable organomegaly Ext: ROM intact. No gross muscle atrophy, no edema, no contractures Neuro: Speech clear, face symmetrical and CN II-XII grossly intact with no noted focal neuro deficits Psych: Alert and oriented to person, place, time, and situation. Appropriate and pleasant affect. Assessment and Plan of Care: Acute bilateral PEs Atypical chest pain, acute coronary event ruled out -Continue anticoagulation with Eliquis -Echocardiogram to be completed -Continue telemetry monitoring -Symptomatic care and pain management -Plan for likely discharge tomorrow morning pending echocardiogram results. -Patient will need to follow up outpatient with hematology for long-term monitoring/management of anticoagulation needs. CODE STATUS: Full code DVT prophylaxis: Emani Discussed with: Patient and RN Anticipated discharge date: likely tomorrow morning Anticipated discharge place: Home A total of 36 minutes was spent on the care of this complex patient more than 50% of the time was spent in counseling and care coordination. Objective - Vital Signs Vital signs: Vital Signs Temp 97.5 F L 11/08/21 08:00 Pulse 63 11/08/21 10:00 Resp 18 11/08/21 10:00 BP 139/83 11/08/21 10:00 Pulse Ox 95 11/08/21 10:00 Intake & Output 11/07/21 11/08/21 11/08/21 18:59 06:59 18:59 Weight 95.254 kg - Labs CBC & Chem 7: 11/08/21 05:41 11/08/21 05:41 Labs: Abnormal Lab Results - Last 24 Hours (Table) 11/07/21 11/07/21 11/07/21 Range/Units 16:43 16:43 16:43 WBC 11.2 H (3.8-10.6) k/uL Neutrophils # 8.5 H (1.3-7.7) k/uL PT (9.0-12.0) sec APTT (22.0-30.0) sec D-Dimer (<0.60) mg/L FEU Carbon Dioxide 20 L (22-30) mmol/L Glucose 103 H (74-99) mg/dL Plasma Lactic Acid Calvin (0.7-2.0) mmol/L Calcium (8.4-10.2) mg/dL AST (17-59) U/L Total Protein (6.3-8.2) g/dL Albumin (3.5-5.0) g/dL Urine Protein Trace H (Negative) 11/07/21 11/07/21 11/07/21 Range/Units 16:43 18:50 21:43 WBC (3.8-10.6) k/uL Neutrophils # (1.3-7.7) k/uL PT 12.1 H (9.0-12.0) sec APTT 161.9 H* (22.0-30.0) sec D-Dimer 3.32 H (<0.60) mg/L FEU Carbon Dioxide (22-30) mmol/L Glucose (74-99) mg/dL Plasma Lactic Acid Calvin 0.6 L (0.7-2.0) mmol/L Calcium (8.4-10.2) mg/dL AST (17-59) U/L Total Protein (6.3-8.2) g/dL Albumin (3.5-5.0) g/dL Urine Protein (Negative) 11/08/21 11/08/21 Range/Units 00:37 05:41 WBC (3.8-10.6) k/uL Neutrophils # (1.3-7.7) k/uL PT (9.0-12.0) sec APTT 88.1 H (22.0-30.0) sec D-Dimer (<0.60) mg/L FEU Carbon Dioxide (22-30) mmol/L Glucose (74-99) mg/dL Plasma Lactic Acid Calvin (0.7-2.0) mmol/L Calcium 7.6 L (8.4-10.2) mg/dL AST 14 L (17-59) U/L Total Protein 5.6 L (6.3-8.2) g/dL Albumin 2.8 L (3.5-5.0) g/dL Urine Protein (Negative)
[2021-11-08] MEDS: ACETAMINOPHEN TAB 325 MG TAB PO PRN (12:30)
[2021-11-08 17:04] LABS: Basophils % (A) 0 %; Eosinophils # (A) 0.2 k/uL (0-0.7); Eosinophils % (A) 2 %; HCT 46.7 % (39.0-53.0); HGB 15.2 gm/dL (13.0-17.5); Lymphocytes # (A) 1.8 k/uL (1.0-4.8); Lymphocytes % (A) 19 %; MCH 31.1 pg (25.0-35.0); MCHC 32.6 g/dL (31.0-37.0); MCV 95.4 fL (80.0-100.0); Monocytes # (A) 0.5 k/uL (0-1.0); Monocytes % (A) 6 %; Neutrophils # (A) 6.7 k/uL (1.3-7.7); Neutrophils % (A) 71 %; Platelet Count 327 k/uL (150-450); RBC 4.89 m/uL (4.30-5.90); RDW 13.7 % (11.5-15.5); WBC 9.4 k/uL (3.8-10.6)
[2021-11-09] MEDS: ACETAMINOPHEN TAB 325 MG TAB PO PRN ×2 (00:08→09:07)
[2021-11-09] MEDS: SODIUM CHLORIDE 0.9% 1,000 ML IV SCH ×2 (00:48→11:37)
[2021-11-09] MEDS ORDERED: DOCUSATE 100 MG CAP PO PRN (01:00)
[2021-11-09 08:45] LABS: HCT 45.4 % (39.0-53.0); HGB 14.4 gm/dL (13.0-17.5); MCH 29.7 pg (25.0-35.0); MCHC 31.7 g/dL (31.0-37.0); MCV 93.7 fL (80.0-100.0); Mean Platelet Volume 7.3; Platelet Count 327 k/uL (150-450); RBC 4.85 m/uL (4.30-5.90); WBC 9.2 k/uL (3.8-10.6)
[2021-11-09] MEDS: APIXABAN 5 MG TAB PO SCH (09:07)
--- NOTE | 2021-11-09 11:29 | P.DS ---
Providers Date of admission: 11/07/21 18:17 Expected date of discharge: 11/09/21 Attending physician: Zen Mtz MD Primary care physician: Stated None Hospital Course: Discharge Diagnosis: Acute bilateral PEs, pt discharged home on oral anticoagulant Eliquis and to follow up outpatient with pulmonary and oncology as discussed. Atypical chest pain, acute coronary event ruled out. Hospital Course: Patient is a very pleasant 61-year-old male with no known reported past medical history. He presented to the emergency department with a chief complaint of right sided chest pain. Patient reported right lateral wall chest pain 1 week described as sharp and achy in nature and worsened with a deep breath. Patient reports his pain was associated by shortness of breath. Patient did have recent travel to the (approximately a 3-1/[address]). Patient was seen and fully evaluated in the emergency department. he was found to have an elevated d-dimer of 3.32 and a normal troponin of < 0.012. Pt underwent a CT PE which revealed multiple bilateral small emboli with no evidence of right heart strainpatient was admitted under our services and started on oral anticoagulation with Eliquis. EKG was completed revealing sinus rhythm of 74 bpm. Covid PCR was negative. Echocardiogram revealing normal EF between 55 and 60% with no significant valvular abnormalities. Patient medically stable at this time . Vital signs and labs stable. Discussed discharge teaching and plans with the patient. Patient stable for discharge home on oral anticoagulant with Eliquis and to follow up outpatient with pulmonology and oncology as we discussed for long-term monitoring and/or management. Physical exam: Patient was seen and fully evaluated at the bedside this morning. He reports continued pain to right lateral chest wall worsening upon taking a deep breath. patient does report improvement of pain with morphine. Vital signs reviewed and stable. General: Nontoxic, no distress and appears stated age. Derm: Skin warm and dry, normal coloration for ethnicity. Head: Atraumatic, normocephalic and symmetric. Eyes: EOMs intact, no lid lag, and anicteric sclera Mouth: no lip lesions, mucus membranes moist Cardiovascular: regular rate and rhythm with normal S1S2, no murmur, positive posterior tibial pulses bilaterally, and cap refill < 2 seconds. Lungs: Respirations even, regular, and unlabored on room air. Lungs CTA bilaterally, no rhonchi, no rales, no wheezing, and no accessory muscle usage. Abdominal: soft, nontender to palpation, no guarding, no appreciable organomegaly Ext: ROM intact. No gross muscle atrophy, no edema, no contractures Neuro: Speech clear, face symmetrical and CN II-XII grossly intact with no noted focal neuro deficits Psych: Alert and oriented to person, place, time, and situation. Appropriate and pleasant affect. A total of 34 minutes of time were spent preparing this complex discharge summary. Radames Almaraz NP rendered care for this patient independently, reviewed the findings and plan as documented in the note above. I did not physically speak with or examine the patient on this date. Patient Condition at Discharge: Stable Plan - Discharge Summary Discharge Rx Participant: No New Discharge Prescriptions: New HYDROcodone/APAP 7.5-325MG [[place] 7.5-325] 1 tab PO Q4H PRN 3 Days #18 tab PRN Reason: Pain Apixaban [Eliquis Starter Pack (for VTE)] 5 - 10 mg PO DIRECTED 30 Days #1 each Discharge Medication List Apixaban [Eliquis Starter Pack (for VTE)] 5 - 10 mg PO DIRECTED 30 Days #1 each 11/08/21 [Rx] HYDROcodone/APAP 7.5-325MG [[place] 7.5-325] 1 tab PO Q4H PRN 3 Days #18 tab 11/09/21 [Rx] Follow up Appointment(s)/Referral(s): Rigoberto Salguero MD [STAFF PHYSICIAN] - 1 Week Lora Roque MD [STAFF PHYSICIAN] - 1 Week Soila Geronimo MD [STAFF PHYSICIAN] - 1 Week (Appt November 24 1:45pm) Activity/Diet/Wound Care/Special Instructions: Activity: As tolerated. Take breaks as needed. Diet: Heart healthy and carb consistent diet. Avoid salts, or foods with hidden salts such as canned or boxed foods and frozen dinners. Extra salt makes your heart work harder and traps the fluid in your body for longer. Special Instructions: Take all of your medications as directed and remember to keep all of your doctor's appointments and follow-up as needed. You are also being discharged home on a blood thinner, Eliquis. This is very important to take daily as directed until otherwise advised by your photoengraving apprentice-Dr. Salguero and Buggy Loader Dr. Geronimo that you will are being referred to upon discharge. Being that you are being placed on a blood thinner it is very important to watch for any signs of bleeding and notify your doctor immediately if you notice any bleeding. It is also important to remove any trip hazards such as rugs or loose extension cords from your home to prevent unnecessary falls and if you do experience a fall or head injury, it is extremely important to be evaluated by a medical provider immediately to ensure no internal bleeding. Thank you for allowing us to participate in your care, it was truly a pleasure having you for our patient!!! Discharge Disposition: HOME SELF-CARE
[2021-11-09 11:36] VITALS: BP 138/70; PULSE 70; TEMP 98
[2021-11-09 14:35] VITALS: RESP 16
== END 2021-11-09 15:52 | disposition home or self-care (01) | DRG 176 ==
LOC: EC 14:05 → 3SCARD 18:17
PROVIDERS: ADMIT Internal Medicine; ATTEND Internal Medicine
PROC: 3E0F7SF Introduction of Other Gas into Respiratory Tract, Via Natural or Artificial Opening (ICD-10-PCS; principal; 2021-11-07)
DX: I26.99 Other pulmonary embolism without acute cor pulmonale (principal); R65.10 Systemic inflammatory response syndrome (SIRS) of non-infectious origin without acute organ dysfunction; J90 Pleural effusion, not elsewhere classified; R07.89 Other chest pain; I08.1 Rheumatic disorders of both mitral and tricuspid valves; Z20.822 Contact with and (suspected) exposure to COVID-19; Z87.891 Personal history of nicotine dependence; Z91.030 Bee allergy status; Y95 Nosocomial condition
CPT/HCPCS: 36415; 71045; 71275; 74018; 76705; 80053; 81003; 83605; 83690; 83735; 84484; 85025; 85027; 85379; 85610; 85730; 87040; 87635; 93005; 93306; 96361; 96365; 96366; 96367; 96368; 96375; 96376; 99291

== ENCOUNTER → 2022-03-17 | Outpatient (CLI) | payer OTHER ==
[2022-03-18 00:48] LABS: Cardiolipin Ab IgG Interp NEGATIVE (NEGATIVE); Cardiolipin Ab IgM Interp NEGATIVE (NEGATIVE); Cardiolipin IgM Antibody <1.5 U/mL
== END | disposition home or self-care (01) ==
LOC: LABWHC1 16:01
PROVIDERS: ATTEND Internal Medicine Hematology & Oncology
DX: I10 Essential (primary) hypertension (principal); I26.99 Other pulmonary embolism without acute cor pulmonale
CPT/HCPCS: 36415; 81240; 81241; 85300; 85303; 85306; 85613; 85730; 86147

== ENCOUNTER → 2022-03-30 | Outpatient (CLI) | payer OTHER ==
--- NOTE | 2022-03-31 05:59 | US ---
EXAMINATION TYPE: US venous doppler duplex LE DATE OF EXAM: 03/30/2022 4:38 PM COMPARISON: NONE CLINICAL HISTORY: R22.42, R22.41 SWELLING OF LT AND RT LOWER LIMB. HX PE. On blood thinners. SIDE PERFORMED: Bilateral TECHNIQUE: The lower extremity deep venous system is examined utilizing real time linear array sonog yaritza with graded compression, doppler sonography and color-flow sonography. VESSELS IMAGED: Common Femoral Vein Deep Femoral Vein Greater Saphenous Vein * Femoral Vein Popliteal Vein Small Saphenous Vein * Proximal Calf Veins (* superficial vessels) Right Leg: Negative for DVT Left Leg: Negative for DVT Grayscale, color doppler, spectral doppler imaging performed of the deep veins of the bilateral lower extremities. There is normal flow, compressibility, vascular waveforms. IMPRESSION: No ultrasound evidence for acute DVT in either lower extremity.
== END | disposition home or self-care (01) ==
LOC: RADUSWWP 12:03
PROVIDERS: ATTEND Internal Medicine Hematology & Oncology
DX: R22.41 Localized swelling, mass and lump, right lower limb (principal); R22.42 Localized swelling, mass and lump, left lower limb
CPT/HCPCS: 93970

== ENCOUNTER → 2022-04-08 | Outpatient (CLI) | payer OTHER ==
--- NOTE | 2022-04-08 22:22 | CT ---
EXAMINATION TYPE: CT angio chest DATE OF EXAM: 04/08/2022 COMPARISON: Prior CTA chest November 07, 2021 HISTORY: SOB CT DLP: 464.3 mGycm. Automated Exposure Control for Dose Reduction was Utilized. CONTRAST: CTA scan of the thorax is performed with IV Contrast, patient injected with 80cc mL of Isovue 370, pu lmonary embolism protocol. MIP Images are created on CT scanner and reviewed. FINDINGS: LUNGS: Interval resolution of small right pleural effusion. Mild bibasilar linear scarring remains pr esent. No suspicious focal consolidation. No pneumothorax seen bilaterally. MEDIASTINUM: There is satisfactory enhancement of the pulmonary artery and its branches, there is no CT evidence for pulmonary embolism. Recanalized right upper lobe arterial branching vessel noted. Th ere are no greater than 1 cm hilar or mediastinal lymph nodes. No cardiomegaly or pericardial effus ion is seen. Ectatic/borderline aneurysmal ascending aorta up to 3.9 cm axial image 75 redemonstrated . OTHER: Stable small sized hiatal hernia. IMPRESSION: Resolved right upper lobe pulmonary embolism. No pulmonary embolism on current study. No suspicious acute pulmonary process.
== END | disposition home or self-care (01) ==
LOC: RADCTMAIN 14:37
PROVIDERS: ATTEND Internal Medicine Hematology & Oncology
DX: I26.99 Other pulmonary embolism without acute cor pulmonale (principal)
CPT/HCPCS: 82565; 84520; 71275; 36415; Q9967

== ENCOUNTER → 2022-04-18 | Outpatient (CLI) | payer OTHER ==
[2022-04-20 11:32] LABS: APTT 65 Sec(s) (<43); APTT 1:1 Mix 49 Sec(s) (<43); DRVVT 1:1 Mix 60 Sec(s) (<44); DRVVT Confirmation Positive (Negative); Dilute Russell Viper Venom 99 Sec(s) (<44); Hexagonal Phase Neutralization Positive (Negative)
== END | disposition home or self-care (01) ==
LOC: LABWHC1 13:56
PROVIDERS: ATTEND Internal Medicine Hematology & Oncology
DX: I10 Essential (primary) hypertension (principal); I26.99 Other pulmonary embolism without acute cor pulmonale; D68.59 Other primary thrombophilia
CPT/HCPCS: 85730; 85613; 36415; G0103

== ENCOUNTER → 2022-08-25 | Outpatient (CLI) | payer OTHER ==
[2022-08-26 11:48] LABS: Prothrombin 20210A Mutation Negative
[2022-08-26 13:51] LABS: APTT 56 Sec(s) (<43); APTT 1:1 Mix 46 Sec(s) (<43); DRVVT 1:1 Mix 56 Sec(s) (<44); DRVVT Confirmation Positive (Negative); Dilute Russell Viper Venom 91 Sec(s) (<44); Hexagonal Phase Neutralization Negative (Negative)
== END | disposition home or self-care (01) ==
LOC: LABWHC1 11:17
PROVIDERS: ATTEND Internal Medicine Hematology & Oncology
DX: I10 Essential (primary) hypertension (principal); I26.99 Other pulmonary embolism without acute cor pulmonale; D68.59 Other primary thrombophilia
CPT/HCPCS: 36415; 81240; 81241; 85613; 85730

== ENCOUNTER → 2022-08-25 | Outpatient (CLI) | payer OTHER ==
--- NOTE | 2022-08-25 11:18 | P.SLEEP ---
History of Present Illness DATE: 08/25/2022 CONSULTATION/NEW PATIENT EVALUATION HISTORY OF PRESENT ILLNESS/SLEEP-WAKE EVALUATION: 62-year-old gentleman had been evaluated in the sleep center for possible obstructive sleep apnea hypopnea syndrome. SLEEP SCHEDULE: Usually sleep schedule from 10 PM to 6 AM 7 days a week. FALLING ASLEEP: No problems with falling asleep, although patient has TV set and bedroom. DURING SLEEP: Patient has loud snoring, wakes up from sleep several times with one episode of using restroom at night. Positive history of restless leg symptoms and moving his feet during the sleep. No history of hypnogogical hallucinations, sleep paralysis, or cataplexy. DURING THE DAY/WAKE STATE: In the morning patient wake up tired, falling asleep during the day, has problems with memory and sexual dysfunction. [place] sleepiness scale is 16, which indicates sleepiness. Patient usually takes 1 nap around 3 PM. PAST MEDICAL HISTORY: Hypertension, acid reflux, blood clot in lungs, hyperlipidemia, 2 polyps in colon during colonoscopy. PAST SURGICAL HISTORY: Colonoscopy. MEDICATIONS: Omeprazole, Eliquis, cyclobenzaprine. SOCIAL HISTORY: Positive history of smoking for 45 years up to one and a half pack per day, quit 12 years ago, alcohol consumption up to several times per week. FAMILY HISTORY: Hypertension, heart problems, sleep apnea. REVIEW OF SYSTEMS: Loud snoring, multiple awakenings from sleep, sleepiness during the day. No fevers. No double vision. No recent chest pain. No shortness of breath. No abdominal pain. No bleeding episodes. No blood in urine. No seizure episodes. PHYSICAL EXAMINATION: GENERAL: A pleasant patient without any distress. VITAL SIGNS: BP 135/86 , HR 60 , RR 16 , weight 221.4 pounds, height 5 foot 8-1/4 inches, body mass index 33,4 . HEENT: PERRLA, EOMI. Evaluation of oropharynx showed tongue protrudes midline, low position of soft palate Mallampati 4. NECK: Supple. No JVD. Thyroid is not palpable. 17-1/2 inches in circumference. LUNGS: Clear to percussion and to auscultation. Good air exchange. No wheezing or rhonchi. HEART: S1, S2 regular. No murmurs, gallops or rubs. ABDOMEN: Soft and nontender. Bowel sounds are present. No organomegaly appreciated. EXTREMITIES: No clubbing or cyanosis. PROGRAM MANAGEMENT SPECIALIST: Awake, alert, and oriented x3. Cranial nerves 2 to 7 intact. There is no fasciculation or atrophy noted. No focal deficits observed. ASSESSMENT: 1. Loud snoring, multiple awakenings from sleep, extremely low position of soft palate Mallampati 4, wide neck 17.5 inches in circumference, sleepiness [place] Sleepiness Scale is 16. Obstructive sleep apnea hypopnea syndrome. 2. Obesity body mass index 33.4. 3. Hypertension. 4. Leg movements during the sleep, possibly periodic limb movements. 5 of restless leg symptoms. 6 . History of blood clots in the lungs. 7. Acid reflux. 8. Hyperlipidemia. 9 . Status post 2 polyps removed during colonoscopy. PLAN: 1. Polysomnography for evaluation of patient's breathing during sleep. 2. CPAP/BiPAP titration if sleep study confirms obstructive sleep apnea- hypopnea syndrome. 3. Preferable position during sleep on the side. 4. No driving if patient feels any sleepiness. Patient is aware of civil and criminal liability for unsafe driving. 5. Sleep hygiene with regular sleep time for at least 7.5-8 hours. 6. Watching and losing weight. Thank you very much for referring this patient for consultation. Sincerely, Chandu De La Rosa MD, PhD, FAASM. Diplomat of [employer], Sleep Medicine Board by [employer] Teacher of [facility] [place] Past Medical History Past Medical History: No Reported History Additional Past Medical History / Comment(s): Pt states he doesn't go to the doctors much. History of Any Multi-Drug Resistant Organisms: None Reported Past Surgical History: Tonsillectomy Past Anesthesia/Blood Transfusion Reactions: No Reported Reaction Additional Past Alcohol Use History / Comment(s): Pt started smoking in 1973 and quit in 2011 Additional Drug Use History / Comment(s): Occasional cocailne use. - Past Family History Father Family Medical History: Vascular Disorder Additional Family Medical History / Comment(s): Father had aneurysms. He lived to bee 90yrs old. Mother Family Medical History: Deep Vein Thrombosis (DVT), Renal Disease Additional Family Medical History / Comment(s): Mother of renal failure at the age of 89yrs. Brother(s) Family Medical History: Deep Vein Thrombosis (DVT) Sister(s) Family Medical History: Deep Vein Thrombosis (DVT) Medications and Allergies Home Medications Medication Instructions Recorded Confirmed Type Apixaban [Eliquis Starter Pack 5 mg PO BID 05/31/22 06/01/22 History (for VTE)] Atorvastatin [Lipitor] 10 mg PO HS 05/31/22 06/01/22 History Lisinopril-Hctz 10-12.5 mg 1 tab PO DAILY 05/31/22 06/01/22 History [Zestoretic 10-12.5] Omeprazole [PriLOSEC] 20 mg PO AC-BRKFST 05/31/22 06/01/22 History Allergies Allergy/AdvReac Type Severity Reaction Status Date / Time bee pollen Allergy Unknown Verified 06/01/22 10:11 bee venom protein (honey bee) Allergy Anaphylaxis Verified 06/01/22 10:11 hornet venom Allergy Dyspnea Verified 06/01/22 10:11 Sleep Note - Sleep Note Sleep Note: Temperature: Pulse Rate: Respiratory Rate: Blood Pressure: SpO2: Height: Weight: BMI: Neck Circumference:
== END ==
LOC: SLEEP 09:57
PROVIDERS: ATTEND Internal Medicine
DX: G47.33 Obstructive sleep apnea (adult) (pediatric) (principal); E66.9 Obesity, unspecified; I10 Essential (primary) hypertension; Z68.33 Body mass index [BMI] 33.0-33.9, adult; K21.9 Gastro-esophageal reflux disease without esophagitis; E78.5 Hyperlipidemia, unspecified; Z99.89 Dependence on other enabling machines and devices; Z86.010 Personal history of colon polyps; Z86.711 Personal history of pulmonary embolism; Z79.01 Long term (current) use of anticoagulants; Z91.030 Bee allergy status; Z91.048 Other nonmedicinal substance allergy status; Z87.891 Personal history of nicotine dependence
CPT/HCPCS: 99211

== ENCOUNTER 2024-08-06 09:20 | Day surgery (SDC) | payer OTHER ==
[2024-08-05 09:25] VITALS: BMI 31.5
[2024-08-06] MEDS: IV FLUID CONTINUATION 1,000 ML IV ONE (10:20)
[2024-08-06 10:33] VITALS: TEMP 98
[2024-08-06] MEDS ORDERED: PROPOFOL 10 MG/ML 20 ML VIAL IV ONE (11:26)
[2024-08-06] MEDS ORDERED: LIDOCAINE 1% INJ 10MG/ML (20 ML MDV) ONE (11:26)
--- NOTE | 2024-08-06 11:43 | P.PCN ---
Date of Procedure: 08/06/24 Procedure(s) Performed: BRIEF HISTORY: Patient is a 64-year-old pleasant white male scheduled for an elective colonoscopy as a part of evaluation prior history of colon polyps. Last colonoscopy was 2 years ago and was noted to have multiple colon polyps. PROCEDURE PERFORMED: Colonoscopy biopsy and snare polypectomy. PREOPERATIVE DIAGNOSIS: History of colon polyps. IV sedation per Anesthesia. PROCEDURE: After informed consent was obtained, the patient, was brought into the endoscopy unit. IV sedation was administered by Anesthesia under continuous monitoring. Digital rectal examination was normal. Initially the Olympus CF-160 flexible video colonoscope was then inserted in the rectum, gradually advanced into the cecum without any difficulty. Careful examination was performed as the scope was gradually being withdrawn. Ileocecal valve and the appendiceal orifice were visualized and appeared normal. Prep was excellent. Mucosa of the cecum, normal. In the ascending colon there was a 3 mm polyp that was removed by cold biopsy. Rest of the ascending colon, transverse colon, descending colon, appeared normal. Scattered sigmoid diverticulosis seen. In the sigmoid colon there was a 5 mm, 6 mm and a 7 mm polyp that was removed by cold snare polypectomy. Rest of the sigmoid colon, and rectum appeared normal. Retroflexion was performed in the rectum and no lesions were seen. The patient tolerated the procedure well. IMPRESSION: 3 mm ascending colon polyp status post cold biopsy 5 mm, 6 mm and 7 mm sigmoid colon polyp status post cold snare polypectomy Scattered sigmoid diverticulosis RECOMMENDATIONS: Findings of this examination were discussed with the patient as well as his family. He was advised to follow-up with the biopsy results. If the biopsy reveals adenoma he can have repeat colonoscopy in 5 years.
[2024-08-06 12:06] VITALS: BP 119/71; PULSE 76; RESP 18
== END 2024-08-06 12:19 | disposition home or self-care (01) ==
LOC: ORWHC2ENDO 09:20
PROVIDERS: ATTEND Internal Medicine Gastroenterology
DX: D12.2 Benign neoplasm of ascending colon (principal); D12.5 Benign neoplasm of sigmoid colon; K57.30 Diverticulosis of large intestine without perforation or abscess without bleeding; K21.9 Gastro-esophageal reflux disease without esophagitis; I10 Essential (primary) hypertension; E78.5 Hyperlipidemia, unspecified; I26.99 Other pulmonary embolism without acute cor pulmonale; Z91.030 Bee allergy status; Z79.02 Long term (current) use of antithrombotics/antiplatelets; Z79.899 Other long term (current) drug therapy
CPT/HCPCS: 45380; 45385; J2003; J2704; 88305